=== PATIENT | female | born 1980 | race Caucasian/White ===

== ENCOUNTER 2019-03-02 05:30 | Inpatient (IN) | payer MEDICAID ==
[2019-03-02] MEDS ORDERED: OXYTOCIN 30 UNITS/LR 500 ML IV (06:30)
[2019-03-02] MEDS ORDERED: CARBOPROST 250 MCG INJ IM ×2 (06:30→12:30)
[2019-03-02] MEDS ORDERED: METHYLERGONOVINE 0.2 MG INJ IM ×2 (06:30→12:30)
[2019-03-02] MEDS ORDERED: MISOPROSTOL 200 MCG TAB PR ×2 (06:30→12:30)
[2019-03-02] MEDS ORDERED: BETAMET NA PHOS/AC(6 MG/ML) 5ML INJ INJ (07:30)
[2019-03-02 07:55] LABS: ADD MAN DIFF? NO
[2019-03-02 07:59] LABS: BASOPHILS % 0.3 % (0.0-2.0); EOSINOPHILS % 0.3 % (0.0-7.0); HEMATOCRIT 35.1 % (37.0-47.0); HEMOGLOBIN 11.8 g/dl (12.0-16.0); LYMPHOCYTES # 1.6 10^3/ul (0.8-2.9); LYMPHOCYTES % 11.6 % (15.0-51.0); MEAN CORPUSCULAR HGB CONC 33.6 g/dl (32.0-37.0); MEAN CORPUSCULAR VOLUME 89.3 fl (82.0-101.0); MEAN PLATELET VOLUME 10.7 fl (7.4-10.4); MONOCYTE # 0.8 10^3/ul (0.3-0.9); MONOCYTES % 5.6 % (0.0-11.0); NEUTROPHIL # 11.5 10^3/ul (1.6-7.5); NEUTROPHILS % 81.9 % (39.0-77.0); PLATELET COUNT 219 10^3/UL (140-415); RED BLOOD COUNT 3.93 10^6/ul (4.20-5.40); RED CELL DISTRIBUTION WIDTH 13.2 % (11.5-14.5)
[2019-03-02] MEDS ORDERED: BETAMET NA PHOS/AC(6 MG/ML) 2 ML INJ SYG IM (08:00)
[2019-03-02] MEDS: BETAMET NA PHOS/AC(6 MG/ML) 2 ML INJ SYG IM (08:08)
[2019-03-02] MEDS: LACTATED RINGER'S 1,000 ML IV (08:12)
[2019-03-02 08:24] LABS: INR 0.87; PROTIME 11.9 Sec (11.9-14.9); PT RATIO 0.9
[2019-03-02 08:25] LABS: PARTIAL THROMBOPLASTIN TIME 30.1 Sec (23.0-35.0)
[2019-03-02] MEDS ORDERED: METOCLOPRAMIDE 10 MG INJ (08:31)
[2019-03-02] MEDS ORDERED: CITRIC ACID/NA CITRATE 30 ML CUP (08:31)
[2019-03-02] MEDS ORDERED: FAMOTIDINE 20 MG INJ (08:31)
[2019-03-02 08:34] LABS: AMPHETAMINE/METHAMPHETAMINE NEG (NEGATIVE); BARBITURATES NEG (NEGATIVE); BENZODIAZEPINES NEG (NEGATIVE); CANNABINOIDS NEG (NEGATIVE); COCAINE NEG (NEGATIVE); OPIATES NEG (NEGATIVE)
[2019-03-02] MEDS: FAMOTIDINE 20 MG INJ IV (08:36)
[2019-03-02] MEDS: CITRIC ACID/NA CITRATE 30 ML CUP PO (08:36)
[2019-03-02] MEDS: METOCLOPRAMIDE 10 MG INJ IV (08:36)
[2019-03-02] MEDS ORDERED: morphine SULFATE/PF (10 MG/10 ML) INJ (08:51)
[2019-03-02 08:56] LABS: HEPATITIS B SURFACE ANTIGEN NEGATIVE (NEGATIVE)
[2019-03-02] MEDS ORDERED: PHENYLephrine (100 MCG/ML) 10ML SYG (09:00)
[2019-03-02] MEDS ORDERED: AZITHROMYCIN 500MG/NS (PMX) 250 ML (09:13)
[2019-03-02] MEDS ORDERED: ONDANSETRON 4 MG INJ (09:27)
[2019-03-02] MEDS ORDERED: PHENYLephrine 10 MG INJ (09:28)
[2019-03-02] MEDS ORDERED: MEPERIDINE 25 MG INJ IV (09:30)
[2019-03-02] MEDS ORDERED: HYDROmorphONE 1 MG/5 ML IV SYRINGE IV ×3 (09:30)
[2019-03-02] MEDS ORDERED: DIPHENHYDRAMINE 50 MG INJ IV ×2 (09:30→10:30)
[2019-03-02] MEDS ORDERED: FENTAnyl 50 MCG/ML VIAL IV ×3 (09:30)
[2019-03-02] MEDS ORDERED: PROCHLORPERAZINE 10 MG INJ IV (09:30)
[2019-03-02] MEDS ORDERED: ONDANSETRON 4 MG INJ IV (09:30)
[2019-03-02] MEDS ORDERED: KETOROLAC 30 MG INJ IV ×2 (09:30→10:30)
[2019-03-02] MEDS ORDERED: HYDROmorphONE 0.5 MG/0.5 ML SYG IV ×2 (10:30)
[2019-03-02] MEDS ORDERED: NALOXONE (0.4 MG/ML) INJ IV (10:30)
[2019-03-02] MEDS ORDERED: ZOLPIDEM 5 MG TAB PO (10:30)
[2019-03-02] MEDS: OXYTOCIN 30 UNITS/LR 500 ML IV ×3 (10:41→22:22)
[2019-03-02] MEDS: CEFAZOLIN 2 GM/50 ML (PMX) 50 ML IVPB (11:04)
[2019-03-02] MEDS ORDERED: NACL 0.9% 3 ML SYG IV (12:30)
[2019-03-02] MEDS: IBUPROFEN 600 MG TAB PO (12:39)
[2019-03-02] MEDS: ONDANSETRON 4 MG INJ IV (13:17)
[2019-03-02 15:46] LABS: RAPID PLASMA REAGIN NONREACTIVE (NR)
[2019-03-02] MEDS: SENNA/DOCUSATE NA (8.6MG/50MG) TAB PO (21:00)
[2019-03-03 08:33] LABS: ADD MAN DIFF? NO
[2019-03-03 08:36] LABS: BASOPHILS % 0.1 % (0.0-2.0); EOSINOPHILS % 0.1 % (0.0-7.0); HEMATOCRIT 30.4 % (37.0-47.0); HEMOGLOBIN 10.4 g/dl (12.0-16.0); LYMPHOCYTES # 2.1 10^3/ul (0.8-2.9); LYMPHOCYTES % 13.5 % (15.0-51.0); MEAN CORPUSCULAR HEMOGLOBIN 30.1 pg (29.0-33.0); MEAN CORPUSCULAR HGB CONC 34.2 g/dl (32.0-37.0); MEAN CORPUSCULAR VOLUME 88.1 fl (82.0-101.0); MONOCYTE # 0.9 10^3/ul (0.3-0.9); MONOCYTES % 5.5 % (0.0-11.0); NEUTROPHIL # 12.5 10^3/ul (1.6-7.5); NEUTROPHILS % 80.3 % (39.0-77.0); PLATELET COUNT 201 10^3/UL (140-415); RED BLOOD COUNT 3.45 10^6/ul (4.20-5.40); RED CELL DISTRIBUTION WIDTH 13.2 % (11.5-14.5)
[2019-03-03 08:36] LABS: WHITE BLOOD COUNT 15.5 10^3/ul (4.8-10.8)
[2019-03-03] MEDS: OXYCODONE/ACETAMINOPHEN (5/325) TAB PO (10:57)
[2019-03-03] MEDS: SENNA/DOCUSATE NA (8.6MG/50MG) TAB PO ×2 (10:57→21:08)
[2019-03-03] MEDS: IBUPROFEN 600 MG TAB PO ×2 (13:43→23:58)
[2019-03-04] MEDS: IBUPROFEN 600 MG TAB PO ×4 (05:16→23:44)
[2019-03-04] MEDS: LANOLIN HPA 1 PKT TOP (05:23)
[2019-03-04] MEDS: SENNA/DOCUSATE NA (8.6MG/50MG) TAB PO ×2 (10:01→21:26)
[2019-03-05] MEDS: IBUPROFEN 600 MG TAB PO ×2 (05:26→11:54)
[2019-03-05] MEDS: SENNA/DOCUSATE NA (8.6MG/50MG) TAB PO (08:46)
[2019-03-05] MEDS: DIPHTH/TET/ACEL PERTUSS (ADULT) 0.5 ML VIAL IM* (09:00)
== END 2019-03-05 15:50 | disposition home or self-care (01) | DRG 788 ==
LOC: OBT 05:30 → L-D 05:30 → OBT 06:45 → L-D 06:45 → PP1 12:20
PROC: 10D00Z1 Extraction of Products of Conception, Low, Open Approach (ICD-10-PCS; principal; 2019-03-02)
DX: O42.913 Preterm premature rupture of membranes, unspecified as to length of time between rupture and onset of labor, third trimester (principal); O34.211 Maternal care for low transverse scar from previous cesarean delivery; O90.81 Anemia of the puerperium; D64.9 Anemia, unspecified; Z37.0 Single live birth; Z3A.34 34 weeks gestation of pregnancy
CPT/HCPCS: 76815; 76818; 80307; 85025; 85610; 85730; 86592; 86850; 86900; 86901; 87340; 99464